=== PATIENT | male | born 1965 ===

== ENCOUNTER 2024-04-28 09:27 | Outpatient (CLI) | payer OTHER, SELFPAY ==
[2024-04-28 09:50] LABS: Basophils Percent Auto 0.6 % (0.2-1.2); Eosinophils Absolute Auto 0.3 K/mm3 (0-0.3); Eosinophils Percent Auto 9.7 % (0-4.4); Hematocrit 44.8 % (42.0-52.0); Hemoglobin 15.2 g/dL (14.0-18.0); Immature Granulocyte Absolute 0.01 K/mm3 (0.00-0.031); Immature Granulocyte Percent A 0.3 % (0-0.5); Lymphocytes Percent Auto 33.2 % (18.3-44.2); Mean Corpuscular HGB Conc 33.9 g/dl (32-36); Mean Corpuscular Hemoglobin 31.3 pg (26-34); Mean Corpuscular Volume 92.2 fl (80-100); Mean Platelet Volume 10.4 fl (7.4-10.4); Monocytes Absolute Auto 0.4 K/mm3 (0.1-0.6); Monocytes Percent Auto 10.9 % (2.6-8.5); Neutrophils Absolute Auto 1.5 K/mm3 (1.3-6.7); Neutrophils Percent Auto 45.3 % (45.5-73.1); Platelet Count Result 177 k/mm3 (150-375); Red Blood Count 4.86 M/mm3 (4.6-6.20); White Blood Count 3.3 K/mm3 (4.5-10.0)
[2024-04-28 10:22] LABS: Alanine Aminotransferase 45 U/L (6-50); Albumin Level 4.5 g/dL (3.5-5.1); Alkaline Phosphatase 76 U/L (38-126); Anion Gap 6 mmol/L (4-12); Aspartate Amino Transferase 45 U/L (17-59); Bilirubin,Total 0.7 mg/dL (0.2-1.3); Blood Urea Nitrogen 16 mg/dL (9-20); Calcium 9.2 mg/dL (8.4-10.2); Carbon Dioxide 26 mmol/L (22-30); Chloride 106 mmol/L (98-107); Estimated Glomerular Filt Rate > 60; Glucose 90 mg/dL (65-110); Potassium 3.9 mmol/L (3.4-5.0); Sodium 138 mmol/L (137-145)
[2024-04-28 12:17] LABS: Folic Acid 6.2 ng/mL (2.76->20)
[2024-04-28 13:01] LABS: Iron 85 ug/dL (49-181)
[2024-04-28 13:14] LABS: Percent Iron Saturation 37 % (20-50)
[2024-05-02 04:29] LABS: Methylmalonic Acid 125 nmol/L (87-318)
== END 2024-04-28 09:28 | disposition home or self-care (01) ==
LOC: ANHLAB 09:32
PROVIDERS: Nurse Practitioner Family; PCP Internal Medicine; Visit Provider Internal Medicine Hematology & Oncology
DX: D72.819 Decreased white blood cell count, unspecified (principal); D64.9 Anemia, unspecified
CPT/HCPCS: 36415; 80053; 82607; 82746; 83540; 83550; 83921; 85025; 86038; 86039